=== PATIENT | female | born 1985 | race Caucasian/White ===

== ENCOUNTER 2024-11-04 10:52 | Outpatient (RCR) | payer BC, SELFPAY ==
[2024-11-04 11:01] VITALS: BP 126/68
[2024-11-04] MEDS: TYLENOL 650 MG PO (11:19)
[2024-11-04] MEDS: SOLU-MEDROL PF 51.92 MG IV (11:20)
[2024-11-04] MEDS: NSS 250 IV (11:20)
[2024-11-04] MEDS: BENADRYL 25 MG PO (11:20)
[2024-11-04] MEDS: SKYRIZI 260 MG IV (11:50)
[2024-11-04 12:01] VITALS: BP 107/66
[2024-11-04] MEDS: BENADRYL 0.5 MG IV (12:15)
[2024-11-04] MEDS: PEPCID 10 ML IV (12:16)
[2024-11-04] MEDS: PEPCID 10 MG IV (12:16)
[2024-11-04 12:55] VITALS: BP 107/66
[2024-11-04 15:05] VITALS: BP 106/60
--- NOTE | 2024-11-04 16:40 | PTCARENOTE ---
1200- Pt premedicated with tylenol 650mg PO, benadryl 25mg PO and methylprednisone 120mg IV. Approximately 5minutes into the skyrizi infusion, pt began with facial flushing/burning--medication stopped, started reaction protocol, administered
Benadryl 25mg IV and Pepcid 20mg IV. Symptoms resolved, Skyrizi restarted at slower rate to rechallenge per Dr. Harley. Pt tolerated the rest of the infusion and discharged home. Pt educated to call Dr. Harley if any other symptoms or side effects
occur.
== END 2024-11-20 23:59 | disposition home or self-care (01) ==
LOC: OID 10:52
PROVIDERS: ATTENDING PHYSICIAN Internal Medicine; FAMILY PHYSICIAN Family Medicine
DX: K50.90 Crohn's disease, unspecified, without complications (principal)
CPT/HCPCS: 96365; 96366; 96367; 96375; J2327

== ENCOUNTER 2024-12-16 10:50 | Outpatient (RCR) | payer BC, SELFPAY ==
[2024-12-16] MEDS: PEPCID 52 MG IV (11:21)
[2024-12-16] MEDS: TYLENOL 650 MG PO (11:21)
[2024-12-16] MEDS: NSS 250 IV (11:22)
[2024-12-16 11:30] VITALS: BP 119/65
[2024-12-16] MEDS: BENADRYL 50.5 MG IV (11:49)
[2024-12-16] MEDS: SOLU-MEDROL PF 51.92 MG IV (12:18)
[2024-12-16] MEDS: SKYRIZI 260 MG IV (12:46)
[2024-12-16 16:22] VITALS: BP 110/54
== END 2024-12-17 11:28 | disposition home or self-care (01) ==
LOC: OID 10:50
PROVIDERS: ATTENDING PHYSICIAN Internal Medicine; FAMILY PHYSICIAN Family Medicine
DX: K50.90 Crohn's disease, unspecified, without complications (principal)
CPT/HCPCS: 96361; 96365; 96366; 96367; J2327

== ENCOUNTER 2025-01-26 19:58 | Emergency (ER) | payer BC, SELFPAY ==
[2025-01-26 20:00] VITALS: BP 120/77
[2025-01-26] MEDS: TORADOL 15 MG IM (22:57)
--- NOTE | 2025-01-26 23:41 | ED.GENMED ---
History of Present Illness
General
Chief Complaint: Musculo-Skeletal Complaint
Source: patient
Exam Limitations: none
Time Seen by Provider: 01/26/25 23:00
Nursing documentation reviewed up to this point in time: agreed with
History of Present Illness
History of Present Illness:
Pleasant 39-year-old female presents with right hip pain that radiates into her leg. She states that she has been feeling this pain off and on for the last year but it has been worsening recently. Patient has Crohn's disease and rheumatoid
arthritis. She does get injections of Skyrizi. She follows with rheumatology this . Patient denies fever, chills, nausea or vomiting. She reports no difficulty in walking. She denies bowel or bladder retention or incontinence. She does
state that she feels similar pain in other joints but the hip is the worst.
Past History
Past History
ED Past Medical History: Other (Crohn's Colitis, DVT left arm, UTI)
ED Past Surgical History: and Orthopedic (Cervical spine)
Social History
Tobacco: Former smoker
Alcohol: None
Drug: None
Personal:
Living: with family
Employment: Employed
Family History
Family History: Other (Noncontributory)
Review of Systems
Review of Systems
Allergies reviewed?: Yes
All Other Systems: ROS reviewed and negative except as documented in HPI and ROS
Constitutional: Reports no symptoms
EENT: Reports no symptoms
Respiratory: Reports no symptoms
Cardiac: Reports no symptoms
ABD/GI: Reports no symptoms
: Reports no symptoms
Musculoskeletal: Reports joint pain, muscle pain and muscle stiffness; Denies joint swelling or edema
Skin: Reports no symptoms
Neurological: Reports no symptoms
Endocrine: Reports no symptoms
Hematologic/Lymphatic: Reports no symptoms
Psychiatric: Reports no symptoms
Phy Exam
General Physical Exam
General Presentation: well appearing and mild distress
General age: appears stated age
General Skin: warm and dry
General Habitus: normal
General Mental: alert
General Hydration: appears well hydrated
ENT Exam
ENT Exam: EOMI, pharynx normal, neck supple and normocephalic
Eye Exam
Eye Exam: PERRL, cornea clear and conjunctiva normal
Cardiovascular Exam
Cardiovascular Exam: regular rate/rhythm, no edema, no murmur and normal peripheral pulses
Pulmonary Exam
Pulmonary Exam: lungs clear, no respiratory distress, no rales, no crackles, no rhonchi, no stridor, no wheezing and no cough
Gastrointestinal Exam
Gastrointestinal Exam: normal bowel sounds, non tender, soft, no organomegaly, no pulsatile mass and non distended
Neurological Exam
Neurological Exam: alert, oriented x3, no motor deficits and speech normal
Musculoskeletal Exam
Musculoskeletal Exam: full ROM, no edema, neuro vasc intact and other (Pain with hip rolling right greater than left.)
Skin Exam
Skin Exam: normal color, warm/dry, no rash and no petechia
Psychiatric Exam
Psychiatric Exam: normal mood/affect
Course
Orders/Labs/Results
Orders:
Orders
01/26/25 20:02
Hip, Right 2-3 Views [CR Hip - RT w/wo Pel 2-3 Vw*] Urgent
Comment:
Reason For Exam: pain, denies injury
Include a pelvis x-ray?: Yes
01/26/25 22:54
Ketorolac [Toradol] 15 mg .ROUTE .STK-MED ONE
01/26/25 22:56
Ketorolac [Toradol] 15 mg IM NOW STA
01/26/25 23:41
Acetaminophen [Tylenol] 1,000 mg PO NOW STA
Vital Signs
Initial and Last Documented VS:
Initial Vital Signs
Temp Pulse Resp BP Pulse Ox
98.3 F 87 16 120/77 100
01/26/25 20:00 01/26/25 20:00 01/26/25 20:00 01/26/25 20:00 01/26/25 20:00
Last Documented Vital Signs
Temp Pulse Resp BP Pulse Ox
98.3 F 87 16 120/77 100
01/26/25 20:00 01/26/25 20:00 01/26/25 20:00 01/26/25 20:00 01/26/25 20:00
*Critical Care Note
Total Time (30-74mins, 75-104mins- exclusive of procedures): Not Applicable
Update Note
Update Note:
Patient has followed up with Amandeep in the past. She prefers to see Amandeep again.
Patient is due for Skyrizi injection tomorrow. She sees rheumatology on . She prefers to defer NSAIDs as she has Crohn's
ED Attending Note
-
Portions of this chart may have been created with voice recognition software.� Occasional wrong word or��sound alike� substitutions may have occurred due to the inherent limitations of voice recognition software.
Discharge Plan
Departure
Patient Disposition: Home (Routine Discharge)
Date of Disposition: 01/26/25
Time of Disposition: 23:45
Patient with high blood pressure during this ER visit?: Yes
Discharge Problem:
Calcific tendinitis of right hip
Instructions: Muscle and Bone Pain (DC), Using Cold for Pain, BLOOD PRESSURE
Prescriptions:
No Action
mesalamine 400 MG capsule (with del rel tablets)
800 mg PO TID
hydroxychloroquine [Plaquenil] 200 mg Tablet
400 mg PO DAILY
ibuprofen 600 mg Tablet
600 mg PO Q6HPRN PRN (Reason: pain and cramping) Qty: 60 0RF
acetaminophen 325 mg Tablet
650 mg PO Q4HPRN PRN (Reason: mild pain) Qty: 0 0RF
sertraline 50 mg Tablet
50 mg PO DAILY
clonazepam 0.25 mg Tablet,Disintegrating
0.25 mg PO PRN PRN (Reason: panic attack)
hydrocortisone 2.5 % cream
1 applic topical BID PRN (Reason: irritation)
methotrexate sodium 2.5 mg Tablets,Dose Pack
20 mg PO .QMONDAY
Referrals:
Malaika Trevino DO [Family Provider] -
Bryce Zaldivar MD [Active] -
Activity Restrictions/Additional Instructions:
Please follow-up with your way inspector as discussed.
Thank You for choosing [facility].
It was a pleasure meeting you and taking part in your care. We hope for your continued healing and wellness.
Please read discharge instructions in their entirety. However, they are for general education and may not describe your exact diagnosis at discharge. Information on your ER visit and medical conditions were discussed with you along with appropriate
follow up information...
If indicated, please take your medications as instructed and indicated on discharge paperwork.
Please schedule a follow up appointment as directed. Call to schedule an appointment
Please return to the emergency department with ANY change in, persisting, or worsening of symptoms. If any of your symptoms do not improve, or persist, or become more severe within 6-12 hours, please return to the emergency department for further
care.
Please return to the emergency department if you develop a headache, neck pain/stiffness, fever greater than 100.4F, chest pain, shortness of breath, persistent nausea, vomiting, slurred speech, difficulty walking, numbness/tingling, weakness, signs
of infection or any other symptoms that are worrisome to you.
If you have any questions or concerns please do not hesitate to call the Hospital at or E-mail me directly at [email or web address]
Interventions
Interventions:
*Risk Screen - Suicide Last Done: 01/26/25 20:03
*General Assessment Last Done: 01/26/25 20:03
*Neglect/Abuse Screening Last Done: 01/26/25 20:03
*ED COVID-19 Vaccine History Last Done: 01/26/25 20:21
ED-Musculoskeletal Assessment Last Done: 01/26/25 20:21
Discharge Date and Time
Print Language: MACEDONIAN
[2025-01-27] VITALS: BP 110/46
[2025-01-27] MEDS: TYLENOL 1000 MG PO (00:08)
== END 2025-01-27 00:21 | disposition home or self-care (01) ==
LOC: EMR 19:58
PROVIDERS: EMERGENCY PHYSICIAN Student in an Organized Health Care Education/Training Program; FAMILY PHYSICIAN Family Medicine
DX: M65.28 Calcific tendinitis, other site (principal); M25.551 Pain in right hip; M79.18 Myalgia, other site; R03.0 Elevated blood-pressure reading, without diagnosis of hypertension; M06.9 Rheumatoid arthritis, unspecified; K50.90 Crohn's disease, unspecified, without complications; K52.9 Noninfective gastroenteritis and colitis, unspecified; Z86.718 Personal history of other venous thrombosis and embolism; Z87.440 Personal history of urinary (tract) infections; Z87.891 Personal history of nicotine dependence; Z88.0 Allergy status to penicillin; Z88.8 Allergy status to other drugs, medicaments and biological substances
CPT/HCPCS: 99284; 96372; 73502

== ENCOUNTER 2025-02-25 01:28 | Emergency (ER) | payer BC, SELFPAY ==
[2025-02-25 01:34] VITALS: BP 128/81
[2025-02-25 01:52] LABS: % Basophils 0.5 % (0-2); % Eosinophils 0.4 % (0-6); % Immature Granulocytes 0.3 % (0-0.5); % Lymphocytes 20.3 % (20.5-51.1); % Monocytes 10.5 % (1.7-9.3); Absolute Lymphocytes 1.5 10^3/uL (1.2-3.4); Absolute Monocytes 0.8 10^3/uL (0.1-0.6); Absolute Neutrophils 5.2 10^3/uL (1.4-6.5); Hematocrit 39.6 % (37.0-47.0); Hemoglobin 13.7 g/dL (12.0-16.0); Mean Corp Hgb Conc. 34.6 g/dL (33.0-37.0); Mean Corpuscular Hgb 27.4 pg (27.0-31.0); Mean Corpuscular Volume 79.2 fL (81.0-99.0); Mean Platelet Volume 9.9 fL (7.4-10.4); Nucleated Red Blood Cells % 0 %; Platelet Count 292 10^3/uL (130-400); Red Cell Dist. Width 14.4 % (11.5-14.5); White Blood Cell Count 7.6 10^3/uL (4.8-10.8)
[2025-02-25 02:23] LABS: ALT (SGPT) 20 U/L (0-35); AST (SGOT) 25 U/L (14-36); Albumin 5.2 g/dl (3.5-5.0); Alkaline Phosphatase 60 U/L (38-126); Blood Urea Nitrogen 9 mg/dl (7-17); Carbon Dioxide 20 mmol/L (22-30); Chloride 106 mmol/L (98-107); Glucose 107 mg/dl (70-99); Potassium 3.9 mmol/L (3.5-5.1); Sodium 139 mmol/L (135-145); Total Bilirubin 0.5 mg/dl (0.2-1.3); Total Protein 7.8 g/dl (6.3-8.2); eGFR > 60.00
[2025-02-25 04:53] LABS: Erythrocyte Sed Rate 18 mm/hour (0-20)
--- NOTE | 2025-02-25 04:57 | ED.GENMED ---
History of Present Illness
General
Chief Complaint: Generalized Pain
Source: patient
Exam Limitations: none
Time Seen by Provider: 02/25/25 04:55
Nursing documentation reviewed up to this point in time: agreed with
History of Present Illness
History of Present Illness:
39-year-old female with past medical history of rheumatoid arthritis, Crohn's disease, presents emergency department today with concerns of diffuse bodyaches for the past 4 days. She never had anything like this before. Pain seems to be worse in
her hands and her upper extremities. She denies any low back pain. She denies any difficulty ambulating. She denies any urinary fecal incontinence. She denies any loss of sensation in lower extremities. Denies any fevers or chills, denies any
rashes. Saw her PCP for the symptoms and was started on gabapentin which did not help. She denies any recent vigorous exercise. She denies any upper respiratory symptoms. She has no mild sore throat but denies any cough or shortness of breath.
Past History
Past History
ED Past Medical History: Other (Crohn's Colitis, DVT left arm, UTI)
ED Past Surgical History: and Orthopedic (Cervical spine)
Social History
Tobacco: Former smoker
Alcohol: None
Drug: None
Personal:
Living: with family
Employment: Employed
Family History
Family History: Other (Noncontributory)
Review of Systems
Review of Systems
All Other Systems: ROS reviewed and negative except as documented in HPI and ROS
Phy Exam
Physical Exam
Physical Exam:
General: Patient is well appearing and in no acute distress; non-toxic
Skin: Warm and dry, no rashes or lesions. Mild swelling of bilateral hands.
Head: Normocephalic, atraumatic
Throat: Uvula midline. No pharyngeal erythema.
Eyes: Sclera non-icteric. EOMs intact.
Cardiac: Regular rate and rhythm, no murmurs
Peripheral Vascular: No lower extremity swelling or edema
Pulm: Normal respiratory effort, no wheezes, rales, rhonchi
Abdomen: No abdominal tenderness to palpation
Musculoskeletal: 5 out of 5 strength in bilateral upper and lower extremities.
Neuro: CN II-XII intact, no focal neurologic deficits. Sensation grossly intact.
Psychiatric: Appropriate mood and affect.
Course
Orders/Labs/Results
Orders:
Orders
02/25/25 01:42
C-Reactive Protein Urgent
Comment: ADD ON
CMP [Comprehensive Metabolic Panel] Urgent
Complete Blood Count/With Diff Urgent
Creatine Phosphokinase Urgent
Comment: ADD ON
Erythrocyte Sed Rate Urgent
Comment: ADD ON
Lyme Progressive Urgent
02/25/25 03:59
Add On- LAB Urgent
Tests Added?: sed rate, CRP
02/25/25 05:15
Ketorolac [Toradol] 15 mg IV NOW STA
02/25/25 05:23
COVID-19 Antigen Urgent
Source: Nasal Swab
Influenza A+B Rapid Molecular Urgent
YANICK Source: Nasal Swab
Specimen Description:
02/25/25 05:32
Add On- LAB Urgent
Tests Added?: lyme progressive and CPK
Abnormal Lab Results
02/25/25
01:42
MCV 79.2 L fL
(81.0-99.0)
Absolute Monos (auto) 0.8 H 10^3/uL
(0.1-0.6)
Lymphocytes % 20.3 L %
(20.5-51.1)
Monocytes % 10.5 H %
(1.7-9.3)
Carbon Dioxide 20 L mmol/L
(22-30)
Glucose 107 H mg/dl
(70-99)
Albumin 5.2 H g/dl
(3.5-5.0)
02/25/25 01:42
02/25/25 01:42
Vital Signs
Initial and Last Documented VS:
Initial Vital Signs
Temp Pulse Resp BP Pulse Ox
98.7 F 92 18 128/81 99
02/25/25 01:34 02/25/25 01:34 02/25/25 01:34 02/25/25 01:34 02/25/25 01:34
Last Documented Vital Signs
Temp Pulse Resp BP Pulse Ox
98.7 F 70 16 103/59 100
02/25/25 01:34 02/25/25 05:33 02/25/25 05:33 02/25/25 05:33 02/25/25 05:33
MDM/Problems Addressed
Differential Diagnosis Includes:
Differentials include rhabdomyolysis, viral syndrome, rheumatoid arthritis etc.
MDM/Problems Addressed:
39 year-old female presents emergency department today with concerns of bodyaches. This has been going on for the past 4 days. She feels pain in all of her extremities and this started all at the same time. She has no ascending symptoms. On
physical exam, she is well-appearing no acute distress. She does have some swelling in both of her hands but her physical exam is otherwise unremarkable. Does not feel similar to RA flares in the past. Her blood work is unremarkable. Her CPK is
normal. Her inflammatory markers are normal. I did send off Lyme which is pending. Her viral testing is negative. No clear etiology of symptoms at this time however consider wearing swelling of both of her hands, will start her on a Medrol
Dosepak and advised her to follow-up with her back shoe worker. Patient expressed understanding. Patient stable for discharge.
*Critical Care Note
Total Time (30-74mins, 75-104mins- exclusive of procedures): Not Applicable
ED Attending Note
-
Portions of this chart may have been created with voice recognition software.� Occasional wrong word or��sound alike� substitutions may have occurred due to the inherent limitations of voice recognition software.
Discharge Plan
Departure
Patient Disposition: Home (Routine Discharge)
Date of Disposition: 02/25/25
Time of Disposition: 06:38
Patient with high blood pressure during this ER visit?: Yes
Condition: Good
Discharge Problem:
Body aches
Instructions: Muscle, joint, and bone pain - Discharge instructions, BLOOD PRESSURE
Prescriptions:
New
methylprednisolone [Medrol (Jarad)] 4 mg tablets,dose pack
See Rx Instructions .ROUTE .COMPLEX Qty: 21 0RF
Rx Instructions:
orally per package directions
No Action
mesalamine 400 MG capsule (with del rel tablets)
800 mg PO TID
hydroxychloroquine [Plaquenil] 200 mg Tablet
400 mg PO DAILY
ibuprofen 600 mg Tablet
600 mg PO Q6HPRN PRN (Reason: pain and cramping) Qty: 60 0RF
acetaminophen 325 mg Tablet
650 mg PO Q4HPRN PRN (Reason: mild pain) Qty: 0 0RF
sertraline 50 mg Tablet
50 mg PO DAILY
clonazepam 0.25 mg Tablet,Disintegrating
0.25 mg PO PRN PRN (Reason: panic attack)
hydrocortisone 2.5 % cream
1 applic topical BID PRN (Reason: irritation)
methotrexate sodium 2.5 mg Tablets,Dose Pack
20 mg PO .QMONDAY
Referrals:
Malaika Trevino DO [Family Provider, Family Practice]
Shima Mathis MD [Non-Admitting Privileges, Neurology] - Call in 1-3 days for appt
Activity Restrictions/Additional Instructions:
Please call your back shoe worker today for a follow up appointment.
PLEASE RETURN EMERGENCY DEPARTMENT SHOULD YOU DEVELOP ANY ACUTE WORSENING OF PAIN, SHORTNESS OF BREATH, CHEST PAIN, INABILITY TO AMBULATE, COMPLETE LOSS OF SENSATION LOWER EXTREMITIES, RASHES, OR ANY OTHER SIGNS OR SYMPTOMS WORRISOME TO YOU.
Interventions
Interventions:
*Risk Screen - Suicide Last Done: 02/25/25 01:34
*General Assessment Last Done: 02/25/25 01:34
*Neglect/Abuse Screening Last Done: 02/25/25 01:34
*ED- Fall Risk Assessment Last Done: 02/25/25 06:58
*ED COVID-19 Vaccine History Last Done: 02/25/25 06:58
*Nursing Disposition Last Done: 02/25/25 06:58
Discharge Date and Time
Discharge Date/Time: 02/25/25 06:58
Print Language: FRISIAN
[2025-02-25] MEDS: TORADOL 15 MG IV (05:29)
[2025-02-25 05:33] VITALS: BP 103/59
[2025-02-25 05:51] LABS: COVID-19 Antigen Negative (Negative)
[2025-02-25 06:26] LABS: Creatine Phosphokinase 65 U/L (30-135)
[2025-02-25 16:08] LABS: Lyme Antibody Screen, EIA Negative (Negative)
== END 2025-02-25 06:58 | disposition home or self-care (01) ==
LOC: EMR 01:28
PROVIDERS: Physician Assistant; EMERGENCY PHYSICIAN Emergency Medicine; FAMILY PHYSICIAN Family Medicine
DX: M79.602 Pain in left arm (principal); M79.601 Pain in right arm; M79.605 Pain in left leg; M79.604 Pain in right leg; Z87.891 Personal history of nicotine dependence; Z11.52 Encounter for screening for COVID-19; R03.0 Elevated blood-pressure reading, without diagnosis of hypertension
CPT/HCPCS: 99284; 96374; 80053; 82550; 85025; 85652; 86140; 86618; 87502; 87811

== ENCOUNTER → 2025-05-14 07:55 | Outpatient (REF) | payer BC, SELFPAY | LOC: WDC 07:55 | PROVIDERS: ATTENDING PHYSICIAN Obstetrics & Gynecology | DX: R92.8 Other abnormal and inconclusive findings on diagnostic imaging of breast (principal) | CPT/HCPCS: 76642 ==